=== PATIENT | female | born 1965 | race Asian ===

== ENCOUNTER 2017-02-20 03:48 | Emergency (ER) | payer OTHER ==
[2017-02-20] MEDS ORDERED: LIDOCAINE VISCOUS 2% 15 ML UDC MM STA (03:53)
[2017-02-20] MEDS ORDERED: MAG HYDROX/AL HYDROX/SIMETH 30 ML UDC PO STA (03:53)
[2017-02-20] MEDS ORDERED: FAMOTIDINE 20 MG TABLET PO STA (03:53)
--- NOTE | 2017-02-20 04:02 | ED Physician Documentation ---
PD HPI CHEST PAIN - Stated complaint Stated Complaint: CHEST PAIN - Chief complaint Chief Complaint: Abd Pain - History obtained from History obtained from: Patient - History of Present Illness Timing - onset: Today Timing - onset during: Rest Timing - details: Gradual onset, Still present Quality: Sharp, Indigestion Location: Substernal Radiation: Back Associated symptoms: Nausea. No: Shortness of air, Diaphoresis, Vomiting, Feeling faint / dizzy Similar symptoms before: No diagnosis Recently seen: Not recently seen - Additional information Additional information: Patient is a 51 year old female with a history of anxiety who is presenting to the emergency department for substernal burning. Patient states that she made a meal with extra onions in it tonight and ever since dinner she has had buring in her chest. Patient states that she had a hard time lying down because of the pain. Review of Systems Constitutional: denies: Fever, Chills Eyes: denies: Decreased vision, Photophobia Ears: reports: Reviewed and negative Nose: reports: Reviewed and negative Throat: reports: Reviewed and negative Cardiac: reports: Chest pain / pressure Respiratory: denies: Cough, Wheezing GI: denies: Nausea, Vomiting : reports: Reviewed and negative Skin: denies: Rash, Lesions Musculoskeletal: reports: Back pain Neurologic: denies: Generalized weakness, Focal weakness Psychiatric: reports: Anxiety Immunocompromised: denies: Immunocompromised PD PAST MEDICAL HISTORY - Past Medical History Cardiovascular: Hypertension, High cholesterol - Past Surgical History Past Surgical History: Yes 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 HEENT: Cataracts - Present Medications Home Medications: Ambulatory Orders Medication Instructions Recorded Confirmed Simvastatin 20 mg PO QPM 01/11/15 02/20/17 Telmisartan/Hydrochlorothiazid 1 tab PO DAILY 02/20/17 02/20/17 [Micardis Hct 40-12.5 mg Tablet] - Allergies Allergies/Adverse Reactions: Allergies Allergy/AdvReac Type Severity Reaction Status Date / Time codeine Allergy Intermediate Rash Verified 01/11/15 20:00 - Social History Does the pt smoke?: No Smoking Status: Never smoker Does the pt drink ETOH?: No Does the pt have substance abuse?: No PD ED PE NORMAL - Vitals Vital signs reviewed: Yes - General General: Alert and oriented X 3 - HEENT HEENT: Atraumatic, PERRL - Neck Neck: Supple, no meningeal sign, No JVD - Cardiac Cardiac: RRR, No murmur - Respiratory Respiratory: No respiratory distress - Abdomen Abdomen: Soft, Non tender, Non distended - Derm Derm: Normal color, Warm and dry, No rash - Extremities Extremities: No deformity, Normal ROM s pain, No calf tenderness / cord - Neuro Neuro: Alert and oriented X 3, No motor deficit, No sensory deficit, Normal speech Eye Opening: Spontaneous Motor: Obeys Commands Verbal: Oriented GCS Score: 15 - Psych Psych: Normal mood PD ED PE EXPANDED - General General: Alert, Anxious - Eyes Eyes: Other (pterygium of left eye) Results - Vitals Vitals: Vital Signs - 24 hr 02/20/17 03:53 Temperature 36.8 C Heart Rate 91 Respiratory 18 Rate Blood Pressure 176/97 H O2 Saturation 95 Oxygen O2 Source Room air - EKG (time done) 0359 Rate: Rate (enter#) (84) Rhythm: NSR Fletcher: Normal Intervals: Normal [place] QRS: Normal Ischemia: Normal ST segments Compare to prior EKG: Unchanged from prior EKG - Labs Labs: Laboratory Tests 02/20/17 04:25 Troponin I < 0.04 PD MEDICAL DECISION MAKING - ED course Complexity details: reviewed old records, reviewed results, re-evaluated patient , considered differential, d/w patient, d/w family ED course: Patient was seen and examined at bedside. ekg was performed and was normal sinus. Patient's vital signs were within normal limits. patient was treated with pepcid, maalox and viscous lidocaine. Upon re-evaluation patient's pain had resolved. Patient's HEART score was 1 and PERC score was 0. Patient required no further work up and was stable for discharge with outpatient follow up. Departure - Departure Disposition: 01 Home, Self Care Clinical Impression: GERD (gastroesophageal reflux disease) Condition: Good Instructions: ED GERD Follow-Up: Aguila Hanson PA-C [Primary Care Provider] - As Needed Comments: Your diagnostics today were within normal limits. Your symptoms are unlikely cardiac in nature and likely secondary to Acid reflux. You should avoid fried or fatty foods, as well as spicy and acidic foods. You should eat smaller meals and don't eat then lie down. If you get these symptoms again you can take maalox as needed. If these symptoms become more frequent you can talk with your doctor about starting a daily acid suppressant. You may return to the emergency department at any time for new, worsening or uncontrollable symptoms.
[2017-02-20 05:00] VITALS: BP 161/79
== END 2017-02-20 05:00 | disposition home or self-care (01) ==
LOC: ED 03:48
DX: K21.9 Gastro-esophageal reflux disease without esophagitis (principal); I10 Essential (primary) hypertension; E78.00 Pure hypercholesterolemia, unspecified; F41.9 Anxiety disorder, unspecified
CPT/HCPCS: 36415; 84484; 93005; 99283; A9270

== ENCOUNTER 2017-12-25 18:46 | Emergency (ER) | payer OTHER ==
[2017-12-25] MEDS ORDERED: CLINDAMYCIN 900 MG/50 ML 50 ML IV ONE (20:41)
[2017-12-25] MEDS ORDERED: HYDROcod/ACETAM 5/325 MG TABLET PO STA (20:42)
--- NOTE | 2017-12-25 21:39 | ED Physician Documentation ---
PD HPI HEENT - Stated complaint Stated Complaint: TOOTH PX - Chief complaint Chief Complaint: Heent - History obtained from History obtained from: Patient, Family () - History of Present Illness Timing - onset: Yesterday Timing - duration: Days (2) Timing - details: Gradual onset Location: Tooth Similar symptoms before: Has not had sx before - Additional information Additional information: The patient is a 52-year-old female who presents with left upper toothache that started yesterday and has become worse today with facial swelling. She denies fever, headache, or sore throat. She has no history of similar symptoms in the past. She has taken Aleve without relief. Review of Systems Constitutional: denies: Fever Eyes: denies: Irritation Ears: denies: Ear pain Nose: denies: Congestion Throat: reports: Dental pain / toothache. 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 HEENT: Cataracts - Present Medications Home Medications: Ambulatory Orders Medication Instructions Recorded Confirmed Simvastatin 20 mg PO QPM 01/11/15 02/20/17 Telmisartan/Hydrochlorothiazid 40 mg PO DAILY 02/20/17 02/20/17 [Micardis Hct 40-12.5 mg Tablet] Clindamycin HCl [Clindamycin 300MG 300 mg PO QID #28 capsule 12/25/17 CAP] Hydrocodone/Acetaminophen 1 - 2 each PO Q6H PRN #14 tablet 12/25/17 [Hydrocodon-Acetaminophen 5-325] - Allergies Allergies/Adverse Reactions: Allergies Allergy/AdvReac Type Severity Reaction Status Date / Time codeine Allergy Intermediate Rash Verified 12/25/17 18:58 - Social History Does the pt smoke?: No Smoking Status: Never smoker Does the pt drink ETOH?: No Does the pt have substance abuse?: No PD ED PE NORMAL - Vitals Vital signs reviewed: Yes (Hypertensive) - General General: Alert and oriented X 3, Well developed/nourished - HEENT HEENT: Atraumatic, EOMI, Ears normal, Pharynx benign, Other (Left facial swelling with mild tenderness to palpation in the maxillary region. Left upper molar is loose in the socket, and tender to palpation. The adjacent molar has been extracted.) - Neck Neck: Supple, no meningeal sign, Other (Mildly enlarged anterior cervical nodes on the left.) - Cardiac Cardiac: RRR, No murmur - Respiratory Respiratory: No respiratory distress, Clear bilaterally - Abdomen Abdomen: Soft, Non tender - Derm Derm: No rash - Neuro Neuro: Alert and oriented X 3, Normal speech Results - Vitals Vitals: Vital Signs - 24 hr 12/25/17 12/25/17 18:57 22:05 Temperature 36.5 C Heart Rate 89 88 Respiratory 20 18 Rate Blood Pressure 179/104 H 160/98 H O2 Saturation 98 98 Oxygen O2 Source Room air PD MEDICAL DECISION MAKING - ED course Complexity details: re-evaluated patient, considered differential, d/w patient, d/w family ED course: The patient's presentation is significant for dental abscess with left maxillary swelling. There is no evidence of peritonsillar abscess or periorbital cellulitis. Treatment in the emergency department included administration of clindamycin 900 mg IV, and Vicodin 1 tablet orally. She is being discharged with prescriptions for both. I discussed with her and her outpatient treatment and the need for urgent dental follow-up. I also discussed with them potentially worrisome signs or symptoms that should prompt reevaluation in the emergency department. Departure - Departure Disposition: 01 Home, Self Care Clinical Impression: Dental abscess Condition: Stable Instructions: ED Abscess Dental Follow-Up: MAGDA HANNON [Primary Care Provider] - Prescriptions: Clindamycin HCl [Clindamycin 300MG CAP] 300 mg PO QID #28 capsule Hydrocodone/Acetaminophen [Hydrocodon-Acetaminophen 5-325] 1 - 2 each PO Q6H PRN #14 tablet PRN Reason: pain Comments: Take clindamycin 4 times daily as prescribed. You can use ibuprofen, up to 800 mg 3 times daily for its anti-inflammatory effect. You can use Vicodin as prescribed if needed for pain. Follow-up with a dentist as soon as possible. Call tomorrow to schedule appointment. Return to the emergency department if you develop increasing facial swelling, difficulty swallowing, or otherwise worsening symptoms. Discharge Date/Time: 12/25/17 22:05
[2017-12-25 22:07] VITALS: BP 160/98
== END 2017-12-25 22:05 | disposition home or self-care (01) ==
LOC: ED 18:46
DX: K04.7 Periapical abscess without sinus (principal); I10 Essential (primary) hypertension
CPT/HCPCS: 96365; 99283; A9270

== ENCOUNTER 2018-02-24 01:48 | Emergency (ER) | payer OTHER ==
--- NOTE | 2018-02-24 02:09 | ED Physician Documentation ---
PD HPI Fall - Stated complaint Stated Complaint: L SIDE PAIN - Chief complaint Chief Complaint: Trauma Ch/Bk - History obtained from History obtained from: Patient - History of Present Illness Mechanism of injury: Tripped Fall distance: Standing position Where injury occurred: Home Timing - onset: How many hours ago (1) Injury(ies) location: Chest Pain level now: 8 Quality of pain: Pain, Sharp Associated symptoms: No: LOC, AMS, Amnesia, Neck pain, Weakness, Paresthesias, Dyspnea, Nausea / vomiting, Hematemesis, Abdominal distension Symptoms improve with: Rest Worsens with: Movement, Palpation, Other (deep inspiration) Contributing factors: No: Anticoagulated, Intoxicated Similar symptoms before: Has not had sx before Recently seen: Not recently seen - Additional information Additional information: was walking down stairs and tripped over her [place] islander jessica. patients left chest wall struck the stair railing, and her only c/o is left anterolateral chest wall pain Review of Systems Cardiac: reports: Chest pain / pressure. 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 HEENT: Cataracts - Present Medications Home Medications: Ambulatory Orders Medication Instructions Recorded Confirmed Simvastatin 20 mg PO QPM 01/11/15 02/20/17 Telmisartan/Hydrochlorothiazid 40 mg PO DAILY 02/20/17 02/20/17 [Micardis Hct 40-12.5 mg Tablet] Hydrocodone/Acetaminophen 1 - 2 each PO Q6H PRN #10 tablet 02/24/18 [Hydrocodon-Acetaminophen 5-325] Potassium Chloride [Klor-Con M20] 1 tab PO BID 02/24/18 02/24/18 - Allergies Allergies/Adverse Reactions: Allergies Allergy/AdvReac Type Severity Reaction Status Date / Time codeine Allergy Intermediate Rash Verified 02/24/18 01:57 - Social History Does the pt smoke?: No Smoking Status: Never smoker Does the pt drink ETOH?: No Does the pt have substance abuse?: No PD ED PE NORMAL - Vitals Vital signs reviewed: Yes - General General: Alert and oriented X 3, Well developed/nourished, Other (appears to be in painful distress, worse with movement) - Neck Neck: No bony TTP - Cardiac Cardiac: RRR, No murmur - Respiratory Respiratory: No respiratory distress, Clear bilaterally - Abdomen Abdomen: Soft, Non tender - Free text exam Free text exam: tender to palpation left anterolateral chest wall without crepitus Results - Vitals Vitals: Vital Signs - 24 hr 02/24/18 02/24/18 02/24/18 01:54 02:08 02:52 Temperature 37.0 C Heart Rate 92 91 82 Respiratory 20 18 Rate Blood Pressure 181/98 H 181/104 H 156/109 H O2 Saturation 98 98 97 02/24/18 03:49 Temperature Heart Rate 87 Respiratory Rate Blood Pressure 148/78 H O2 Saturation 100 Oxygen O2 Source Room air - Rads (name of study) cxr with left ribs Radiology: Prelim report reviewed, See rad report PD MEDICAL DECISION MAKING - ED course Complexity details: reviewed results, re-evaluated patient, considered differential, d/w patient, d/w family ED course: I performed bedside US and there was sharp hepatosplenal interface that was well visualized with no evidence of free fluid. patient had significant improvement with 1mg IM dilaudid Departure - Departure Disposition: 01 Home, Self Care Clinical Impression: Chest wall contusion Condition: Good Instructions: ED Contusion Chest Wall Follow-Up: MAGDA HANNON [Primary Care Provider] - (2-3 days if not improving ) Prescriptions: Hydrocodone/Acetaminophen [Hydrocodon-Acetaminophen 5-325] 1 - 2 each PO Q6H PRN #10 tablet PRN Reason: pain Discharge Date/Time: 02/24/18 03:50
[2018-02-24] MEDS ORDERED: HYDROmorphone 1 MG/ML CARPUJECT IM STA (02:24)
--- NOTE | 2018-02-24 03:00 | XRAY Report ---
Reason: injury, left chest pain Procedure Date: 02/24/2018 Accession Number: [id number] / [id number] Procedure: XR - Ribs w/PA Chest LT CPT Code: FULL RESULT: EXAM: LEFT RIB RADIOGRAPHY EXAM DATE: 02/24/2018 02:53 AM. CLINICAL HISTORY: Injury, left chest pain. COMPARISON: None. TECHNIQUE: 1 view of the chest and 2 views of the ribs. FINDINGS: Bones: Normal. No fracture or bone lesion. Lungs: No focal opacities. No pneumothorax. No pleural effusions. Mediastinum: Heart and mediastinal contours are unremarkable. Other: There is some densities overlying the proximal left humerus. IMPRESSION: 1. No infiltrates. 2. No rib fractures. 3. Questionable density overlying or within the proximal left humerus. RADIA
[2018-02-24] MEDS ORDERED: HYDROcod/ACET 5/325 Prepack 4 PO STA (03:31)
[2018-02-24 03:50] VITALS: BP 148/78
== END 2018-02-24 03:50 | disposition home or self-care (01) ==
LOC: ED 01:48
DX: S20.219A Contusion of unspecified front wall of thorax, initial encounter (principal); W01.0XXA Fall on same level from slipping, tripping and stumbling without subsequent striking against object, initial encounter; Y93.01 Activity, walking, marching and hiking; Y92.009 Unspecified place in unspecified non-institutional (private) residence as the place of occurrence of the external cause; I10 Essential (primary) hypertension; E78.00 Pure hypercholesterolemia, unspecified
CPT/HCPCS: 71101; 96372; 99283; J1170

== ENCOUNTER 2018-04-12 11:18 | Outpatient (CLI) | payer OTHER ==
[2018-04-12 11:42] LABS: BASOPHILS # (AUTO) 0.1 10^3/uL (0.0-0.1); BASOPHILS % (AUTO) 1.1 %; EOSINOPHILS # (AUTO) 0.4 10^3/uL (0.0-0.7); EOSINOPHILS % (AUTO) 5.2 %; HGB - HEMOGLOBIN 14.7 g/dL (12.0-16.0); LYMPHOCYTES # (AUTO) 2.2 10^3/uL (1.5-3.5); LYMPHOCYTES % (AUTO) 29.9 %; MEAN CORPUSCULAR HEMOGLOBIN 30.5 pg (27.0-31.0); MEAN CORPUSCULAR HGB CONC 35.1 g/dL (32.0-36.0); MEAN CORPUSCULAR VOLUME 87.1 fL (81.0-99.0); MEAN PLATELET VOLUME 7.9 fL (7.9-10.8); MONOCYTES # (AUTO) 0.3 10^3/uL (0.0-1.0); MONOCYTES % (AUTO) 4.1 %; NEUTROPHILS # (AUTO) 4.4 10^3/uL (1.5-6.6); NEUTROPHILS % (AUTO) 59.7 %; PLT - PLATELET COUNT 276 10^3/uL (130-450); RED BLOOD COUNT 4.82 10^6/uL (4.20-5.40); RED CELL DISTRIBUTION WIDTH 12.9 % (12.0-15.0); WHITE BLOOD COUNT 7.4 x10^3/uL (4.8-10.8)
[2018-04-12 11:57] LABS: ALBUMIN 4.8 g/dL (3.2-5.5); ALBUMIN/GLOBULIN RATIO 1.2 (1.0-2.2); CALCIUM 9.3 mg/dL (8.5-10.3); CREATININE 0.5 mg/dL (0.4-1.0); TOTAL PROTEIN 8.8 g/dL (6.7-8.2)
== END 2018-04-12 11:19 | disposition home or self-care (01) ==
LOC: LAB 11:18
PROVIDERS: ATTEND Internal Medicine Gastroenterology
DX: R10.11 Right upper quadrant pain (principal); I10 Essential (primary) hypertension; E78.5 Hyperlipidemia, unspecified; Z80.0 Family history of malignant neoplasm of digestive organs
CPT/HCPCS: 36415; 80053; 83690; 85025

== ENCOUNTER 2018-04-27 11:27 | Day surgery (SDC) | payer OTHER ==
[2018-04-27] MEDS ORDERED: LACTATED RINGERS 1,000 ML IV ONE ×3 (11:46→14:45)
[2018-04-27] MEDS ORDERED: LIDO GARGLE 30 ML BOTTLE ONE (12:55)
[2018-04-27] MEDS ORDERED: LIDO GARGLE 30 ML BOTTLE PO ONE ×2 (13:53→14:11)
[2018-04-27] MEDS ORDERED: fentaNYL 250 MCG/5 ML VIAL IVP ONE (14:02)
[2018-04-27] MEDS ORDERED: MIDAZOLAM 2 MG/2 ML VIAL IVP ONE (14:02)
[2018-04-27 16:05] VITALS: BP 102/68
== END 2018-04-27 11:28 | disposition home or self-care (01) ==
LOC: SDS 11:27
PROVIDERS: ATTEND Internal Medicine Gastroenterology
PROC: 0DB68ZX Excision of Stomach, Via Natural or Artificial Opening Endoscopic, Diagnostic (ICD-10-PCS; 2018-04-27)
PROC: 0DJD8ZZ Inspection of Lower Intestinal Tract, Via Natural or Artificial Opening Endoscopic (ICD-10-PCS; principal; 2018-04-27 12:45)
PROC: 0DB98ZX Excision of Duodenum, Via Natural or Artificial Opening Endoscopic, Diagnostic (ICD-10-PCS; 2018-04-27 12:45)
DX: K29.50 Unspecified chronic gastritis without bleeding (principal); D12.2 Benign neoplasm of ascending colon; Z80.0 Family history of malignant neoplasm of digestive organs; E78.5 Hyperlipidemia, unspecified; I10 Essential (primary) hypertension
CPT/HCPCS: 43239; 45378; A9270; J3010; J7120

== ENCOUNTER 2018-05-05 12:22 | Emergency (ER) | payer OTHER ==
[2018-05-05] MEDS ORDERED: MECLIZINE 12.5 MG TABLET PO STA (14:39)
[2018-05-05] MEDS ORDERED: ONDANSETRON ODT 4 MG TABLET TL STA (14:40)
--- NOTE | 2018-05-05 16:16 | ED Physician Documentation ---
History of Present Illness - Stated complaint Stated Complaint: DIZZY - Chief complaint Chief Complaint: Neuro - History obtained from History obtained from: Patient - History of Present Illness Timing: Today - Additonal information Additional information: The patient is a 52-year-old female who presents with dizziness that started this morning. When queried, she defines it more specifically as a spinning sensation that is worse with movement of her head. She reports associated nausea. She denies vomiting. She denies headache, fever, sore throat, or coug h. She reports history of similar symptoms in the past, stating usually gets better with lying down. Review of Systems Constitutional: denies: Fever Eyes: denies: Discharge Ears: denies: Tinnitus/ringing Nose: denies: Congestion Throat: denies: Sore throat Cardiac: denies: Chest pain / pressure Respiratory: denies: Dyspnea, Cough GI: reports: Nausea. 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 HEENT: Cataracts - Present Medications Home Medications: Ambulatory Orders Medication Instructions Recorded Confirmed Simvastatin 20 mg PO QPM 01/11/15 04/27/18 Telmisartan/Hydrochlorothiazid 40 mg PO DAILY 02/20/17 04/27/18 [Micardis Hct 40-12.5 mg Tablet] Hydrocodone/Acetaminophen 1 - 2 each PO Q6H PRN #10 tablet 02/24/18 04/27/18 [Hydrocodon-Acetaminophen 5-325] Potassium Chloride [Klor-Con M20] 1 tab PO BID 02/24/18 04/27/18 Meclizine HCl [Motion Sickness 25 mg PO Q6HR PRN #20 tablet 05/05/18 Relief] - Allergies Allergies/Adverse Reactions: Allergies Allergy/AdvReac Type Severity Reaction Status Date / Time codeine Allergy Intermediate Rash Verified 05/05/18 12:24 - Social History Does the pt smoke?: No Smoking Status: Never smoker Does the pt drink ETOH?: No Does the pt have substance abuse?: No PD ED PE NORMAL - Vitals Vital signs reviewed: Yes (hypertensive) - General General: Alert and oriented X 3, Well developed/nourished - HEENT HEENT: Atraumatic, PERRL, EOMI, Ears normal, Pharynx benign, Other (Fundi with sharp disc margins, without papilledema.) - Neck Neck: No adenopathy, No JVD - Cardiac Cardiac: RRR - Respiratory Respiratory: No respiratory distress, Clear bilaterally - Abdomen Abdomen: Soft, Non tender - Back Back: No CVA TTP - Derm Derm: No rash - Extremities Extremities: No edema, No calf tenderness / cord - Neuro Neuro: Alert and oriented X 3, No motor deficit, No sensory deficit Results - Vitals Vitals: Vital Signs - 24 hr 05/05/18 05/05/18 12:24 14:36 Temperature 36.6 C 36.8 C Heart Rate 88 89 Respiratory 16 14 Rate Blood Pressure 185/93 H 163/100 H O2 Saturation 99 100 Oxygen O2 Source Room air PD MEDICAL DECISION MAKING - ED course Complexity details: re-evaluated patient, considered differential, d/w patient, d/w family ED course: The patient's presentation is most consistent with peripheral vertigo. Her presentation does not suggest a central source of vertigo. Treatment in the emergency department included administration of Zofran 4 mg orally, and meclizine 25 mg orally. On reevaluation she feels subjectively much improved, and demonstrates ability to ambulate without recurrent symptoms. She is being discharged with prescription for meclizine. I discussed with her and her daughter symptomatic treatment, outpatient follow-up, as well as potentially worrisome signs or symptoms that should prompt reevaluation in the emergency department. Departure - Departure Disposition: Home, Self Care Clinical Impression: Vertigo Hypertension Qualifiers: Hypertension type: unspecified Qualified Code(s): I10 - Essential (primary) hypertension Condition: Stable Instructions: ED Vertigo Unspecified Follow-Up: MAGDA HANNON [Primary Care Provider] - Prescriptions: Meclizine HCl [Motion Sickness Relief] 25 mg PO Q6HR PRN #20 tablet PRN Reason: Dizziness Comments: You can use meclizine as prescribed if needed for dizziness. Follow-up with your primary physician within 1 week. Call to schedule appointment. Return to the emergency department if you develop increasing dizziness, increasing headache, persistent vomiting, or otherwise worsening symptoms.
[2018-05-05 20:10] VITALS: BP 158/96
== END 2018-05-05 17:15 | disposition home or self-care (01) ==
LOC: ED 12:22
DX: R42 Dizziness and giddiness (principal); I10 Essential (primary) hypertension; E78.00 Pure hypercholesterolemia, unspecified
CPT/HCPCS: 99283; A9270; Q0162

== ENCOUNTER 2018-05-07 07:29 | Emergency (ER) | payer OTHER ==
[2018-05-07] MEDS ORDERED: MAG HYDROX/AL HYDROX/SIMETH 30 ML UDC PO STA (07:51)
[2018-05-07] MEDS ORDERED: SODIUM CHLORIDE 0.9% 1,000 ML IV ONE (07:51)
[2018-05-07] MEDS ORDERED: LIDOCAINE VISCOUS 2% 15 ML UDC MM STA (07:51)
[2018-05-07] MEDS ORDERED: FAMOTIDINE 20 MG/2 ML VIAL IVP STA (07:51)
--- NOTE | 2018-05-07 07:56 | ED Physician Documentation ---
PD HPI ABD PAIN - Stated complaint Stated Complaint: ABD PX - Chief complaint Chief Complaint: Abd Pain - History obtained from History obtained from: Patient, Family () - History of Present Illness Timing - onset: Last night Timing - details: Still present Quality: Pain Location: Epigastric Associated symptoms: Nausea, Vomiting Similar symptoms before: Diagnosis (Acid peptic disease) Recently seen: Emergency Dept (2 days ago for dizziness.) - Additional information Additional information: The patient is a 52-year-old female who presents with epigastric abdominal pain that started at 11:00 last night after eating brown rice, chicken, and bread. The pain has been persistent since that time, with associated vomiting. She denies diaphoresis or shortness of breath. She has history of similar symptoms in the past after eating onions. It was diagnosed as "heartburn." She was seen here 2 days ago for dizziness, and treated for vertigo. She was noted to have hypertension at that time. Review of Systems Constitutional: denies: Fever, Fatigue Ears: denies: Tinnitus/ringing Nose: denies: Congestion Throat: denies: Sore throat Cardiac: denies: Chest pain / pressure, Palpitations Respiratory: denies: Dyspnea, Cough GI: reports: Abdominal Pain, Nausea, Vomiting. 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 HEENT: Cataracts - Present Medications Home Medications: Ambulatory Orders Medication Instructions Recorded Confirmed Simvastatin 20 mg PO QPM 01/11/15 04/27/18 Telmisartan/Hydrochlorothiazid 40 mg PO DAILY 02/20/17 04/27/18 [Micardis Hct 40-12.5 mg Tablet] Meclizine HCl [Motion Sickness 25 mg PO Q6HR PRN #20 tablet 05/05/18 Relief] raNITIdine [Zantac] 150 mg PO BID #30 tablet 05/07/18 - Allergies Allergies/Adverse Reactions: Allergies Allergy/AdvReac Type Severity Reaction Status Date / Time codeine Allergy Intermediate Rash Verified 05/05/18 12:24 - Social History Does the pt smoke?: No Smoking Status: Never smoker Does the pt drink ETOH?: No Does the pt have substance abuse?: No PD ED PE NORMAL - Vitals Vital signs reviewed: Yes (hypertensive) - General General: Alert and oriented X 3, Well developed/nourished - HEENT HEENT: Atraumatic, Pharynx benign - Neck Neck: Supple, no meningeal sign, No adenopathy, No JVD - Cardiac Cardiac: RRR, No murmur - Respiratory Respiratory: No respiratory distress, Clear bilaterally - Abdomen Abdomen: Normal bowel sounds, Soft, Other (Epigastric tenderness to palpation, without rebound or guarding.) - Back Back: No CVA TTP - Derm Derm: No rash - Extremities Extremities: No edema, No calf tenderness / cord - Neuro Neuro: Alert and oriented X 3, No motor deficit, Normal speech Results - Vitals Vitals: Vital Signs - 24 hr 05/07/18 05/07/18 05/07/18 07:38 08:32 08:52 Heart Rate 83 80 81 Respiratory 20 16 18 Rate Blood Pressure 187/99 H 184/98 H 159/93 H O2 Saturation 100 100 96 05/07/18 05/07/18 05/07/18 09:03 10:01 12:08 Heart Rate 84 76 88 Respiratory 22 20 16 Rate Blood Pressure 165/99 H 145/86 H 140/79 H O2 Saturation 99 97 100 Oxygen O2 Source Room air - EKG (time done) .7:54 Rate: Rate (enter#) (82) Rhythm: NSR [place]: Normal Intervals: Prolonged NC QRS: Normal Ischemia: Normal ST segments Computer interpretation: Agree with computer - Labs Labs: Laboratory Tests 05/07/18 05/07/18 05/07/18 08:00 08:00 08:00 WBC 7.9 RBC 4.60 Hgb 14.4 Hct 39.8 MCV 86.4 MCH 31.4 H MCHC 36.3 H RDW 12.9 Plt Count 245 MPV 8.5 Neut # (Auto) 5.0 Lymph # (Auto) 1.9 [place] # (Auto) 0.3 Eos # (Auto) 0.4 Baso # (Auto) 0.2 H Absolute Nucleated RBC 0.00 Nucleated RBC % 0.0 Sodium 136 Potassium 3.1 L Chloride 98 L Carbon Dioxide 28 Anion Gap 10.0 BUN 14 Creatinine 0.5 Estimated GFR (MDRD) 131 Glucose 149 H Calcium 9.2 Total Bilirubin 0.4 AST 38 ALT 53 Alkaline Phosphatase 79 Troponin I < 0.04 Total Protein 8.2 Albumin 4.5 Globulin 3.7 Albumin/Globulin Ratio 1.2 Lipase 43 - Rads (name of study) RUQ U/S Radiology: Prelim report reviewed, EMP read contemporaneously, See rad report (1) No acute intra-abdominal abnormality identified. 2) Fatty liver. 3) Incidental small gallbladder polyp, likely benign. Annual surveillance ultrasound recommended.) PD MEDICAL DECISION MAKING - ED course Complexity details: reviewed old records, reviewed results, re-evaluated patient, considered differential, d/w patient, d/w family ED course: The patient's presentation is most consistent with gastritis. Ultrasound of the right upper quadrant reveals no evidence of gallstones. There is a benign- appearing polyp that the radiologist recommends following with annual ultrasound. Cardiac etiology was considered, but is unlikely, with a normal electrocardiogram and normal troponin. She did not get any relief with nitroglycerin. Chest x-ray is negative for pulmonary etiology. Treatment in the emergency department included administration of GI cocktail, which did not provide relief. Sublingual nitroglycerin x2 and 4 baby aspirin were administered, with no improvement. Morphine 4 mg was administered IV with subsequent relief. Famotidine 10 mg was administered IV. I discussed with her and her the results of the workup and the likely diagnosis, outpatient treatment and follow-up, as well as potentially worrisome signs or symptoms that should prompt reevaluation in the emergency department. She is being discharged with a prescription for ranitidine. A disc of the ultrasound was sent with her at discharge. Departure - Departure Disposition: Home, Self Care Clinical Impression: Gastritis Qualifiers: Gastritis type: unspecified gastritis Chronicity: acute Gastritis bleeding: without bleeding Qualified Code(s): K29.00 - Acute gastritis without bleeding Condition: Stable Instructions: ED Gastritis Follow-Up: MAGDA HANNON [Primary Care Provider] - Prescriptions: raNITIdine [Zantac] 150 mg PO BID #30 tablet Comments: Take ranitidine twice daily as prescribed. You can use liquid antacid, such as Maalox or Mylanta if you develop recurrent symptoms. Follow-up with your primary physician this week as scheduled. Return to the emergency department if you develop recurrent or increasing abdominal pain, persistent vomiting, or otherwise worsening symptoms. Discharge Date/Time: 05/07/18 12:09
[2018-05-07 08:15] LABS: BASOPHILS # (AUTO) 0.2 10^3/uL (0.0-0.1); BASOPHILS % (AUTO) 2.9 %; EOSINOPHILS # (AUTO) 0.4 10^3/uL (0.0-0.7); EOSINOPHILS % (AUTO) 5.3 %; HGB - HEMOGLOBIN 14.4 g/dL (12.0-16.0); LYMPHOCYTES # (AUTO) 1.9 10^3/uL (1.5-3.5); LYMPHOCYTES % (AUTO) 24.6 %; MEAN CORPUSCULAR HEMOGLOBIN 31.4 pg (27.0-31.0); MEAN CORPUSCULAR HGB CONC 36.3 g/dL (32.0-36.0); MEAN CORPUSCULAR VOLUME 86.4 fL (81.0-99.0); MEAN PLATELET VOLUME 8.5 fL (7.9-10.8); MONOCYTES # (AUTO) 0.3 10^3/uL (0.0-1.0); MONOCYTES % (AUTO) 4.1 %; NEUTROPHILS % (AUTO) 63.1 %; PLT - PLATELET COUNT 245 10^3/uL (130-450); RED CELL DISTRIBUTION WIDTH 12.9 % (12.0-15.0); WHITE BLOOD COUNT 7.9 x10^3/uL (4.8-10.8)
[2018-05-07] MEDS ORDERED: NITROGLYCERIN SL 0.4 MG TABLET SL STA ×2 (08:35→08:52)
[2018-05-07] MEDS ORDERED: ASPIRIN CHEW 81 MG TABLET PO STA (08:35)
[2018-05-07 08:37] LABS: ALBUMIN 4.5 g/dL (3.2-5.5); ALBUMIN/GLOBULIN RATIO 1.2 (1.0-2.2); BILIRUBIN,TOTAL 0.4 mg/dL (0.2-1.0); CALCIUM 9.2 mg/dL (8.5-10.3); CREATININE 0.5 mg/dL (0.4-1.0); TOTAL PROTEIN 8.2 g/dL (6.7-8.2)
[2018-05-07] MEDS ORDERED: MORPHINE 2 MG/ML SYRINGE IVP STA (09:10)
[2018-05-07] MEDS ORDERED: KETOROLAC 30 MG/ML VIAL IVP STA (10:17)
--- NOTE | 2018-05-07 11:29 | Ultrasound Report ---
Reason: RUQ abd. pain Procedure Date: 05/07/2018 Accession Number: [id number] / [id number] Procedure: US - Abdomen Limited CPT Code: FULL RESULT: EXAM: ABDOMEN ULTRASOUND LIMITED, RUQ EXAM DATE: 05/07/2018 10:56 AM. CLINICAL HISTORY: Right upper quadrant pain. COMPARISON: None. TECHNIQUE: Real-time scanning was performed with static images obtained. FINDINGS: Liver: The liver is diffusely echogenic in appearance suggesting fibrofatty infiltration. No suspicious lesions or masses are identified. The liver measures 17.0 cm. Main portal vein flow: Hepatopetal. Gallbladder: Small 5 mm gallbladder polyp is seen. No stones, wall thickening, or sonographic Castellano's sign. Biliary System: CBD measures 5 mm. No intrahepatic or extrahepatic ductal dilatation. Other: None. IMPRESSION: 1. No acute intra-abdominal abnormality identified. 2. Fatty liver. 3. Incidental small gallbladder polyp(s), likely benign. Annual surveillance ultrasound recommended. Management above is based on recommendations outlined in an ACR White Paper: Mohinder Menard et al. Managing Incidental Findings on Abdominal and Pelvic CT and MRI, Part 4: White Paper of the ACR Incidental Findings Committee II on Gallbladder and Biliary Findings. Journal of the [employer] 10, 953956 (2013). RADIA
[2018-05-07 12:08] VITALS: BP 140/79
== END 2018-05-07 12:09 | disposition home or self-care (01) ==
LOC: ED 07:29
DX: K29.00 Acute gastritis without bleeding (principal); K82.4 Cholesterolosis of gallbladder; I10 Essential (primary) hypertension; E78.00 Pure hypercholesterolemia, unspecified
CPT/HCPCS: 36415; 76705; 80053; 83690; 84484; 85025; 93005; 96361; 96374; 96375; 99283; 99284; A9270; J2270

== ENCOUNTER 2018-06-19 06:37 | Day surgery (SDC) | payer OTHER ==
[2018-06-19 07:07] LABS: BASOPHILS # (AUTO) 0.1 10^3/uL (0.0-0.1); BASOPHILS % (AUTO) 0.8 %; EOSINOPHILS # (AUTO) 0.3 10^3/uL (0.0-0.7); EOSINOPHILS % (AUTO) 3.4 %; HGB - HEMOGLOBIN 14.2 g/dL (12.0-16.0); LYMPHOCYTES # (AUTO) 1.7 10^3/uL (1.5-3.5); LYMPHOCYTES % (AUTO) 22.3 %; MEAN CORPUSCULAR HEMOGLOBIN 29.9 pg (27.0-31.0); MEAN CORPUSCULAR HGB CONC 34.5 g/dL (32.0-36.0); MEAN CORPUSCULAR VOLUME 86.9 fL (81.0-99.0); MONOCYTES # (AUTO) 0.4 10^3/uL (0.0-1.0); MONOCYTES % (AUTO) 4.7 %; NEUTROPHILS # (AUTO) 5.2 10^3/uL (1.5-6.6); NEUTROPHILS % (AUTO) 68.8 %; PLT - PLATELET COUNT 239 10^3/uL (130-450); RED BLOOD COUNT 4.73 10^6/uL (4.20-5.40); RED CELL DISTRIBUTION WIDTH 12.8 % (12.0-15.0); WHITE BLOOD COUNT 7.5 x10^3/uL (4.8-10.8)
[2018-06-19] MEDS ORDERED: ONDANSETRON 4 MG/2 ML VIAL IVP STA (07:10)
[2018-06-19] MEDS ORDERED: HYDROmorphone 1 MG/ML CARPUJECT IVP STA ×2 (07:10→10:17)
[2018-06-19] MEDS ORDERED: SODIUM CHLORIDE 0.9% 1,000 ML IV ONE (07:11)
[2018-06-19 07:18] LABS: ALBUMIN 4.5 g/dL (3.2-5.5); ALBUMIN/GLOBULIN RATIO 1.2 (1.0-2.2); BILIRUBIN,TOTAL 0.5 mg/dL (0.2-1.0); CALCIUM 8.9 mg/dL (8.5-10.3); CREATININE 0.5 mg/dL (0.4-1.0); TOTAL PROTEIN 8.2 g/dL (6.7-8.2)
--- NOTE | 2018-06-19 07:24 | ED Physician Documentation ---
PD HPI ABD PAIN - Stated complaint Stated Complaint: RT SIDE PX - Chief complaint Chief Complaint: Abd Pain - History obtained from History obtained from: Patient, Family - History of Present Illness Timing - onset: How many hours ago (8) Timing - duration: Hours (8) Timing - details: Abrupt onset Pain level max: 10 Pain level now: 10 Quality: Aching, Pain Location: RUQ, Epigastric Radiation: No: Chest, , Lower back, Left flank, Left shoulder, Right flank, Right shoulder, Upper back Improved by: Other (nothing) Worsened by: Eating Associated symptoms: Nausea. No: Fever, Vomiting, Hematemesis, Diarrhea, Constipation, Melena, Hematochezia, Dysuria, Hematuria, Chest pain Similar symptoms before: Diagnosis (states scheduled to have a cholecystectomy 06/26/2018) - Additional information Additional information: started after eating togolese food. 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 : None HEENT: None Psych: None Musculoskeletal: None Derm: None - Past Surgical History Past Surgical History: Yes 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 HEENT: Cataracts - Present Medications Home Medications: Ambulatory Orders Medication Instructions Recorded Confirmed Simvastatin 20 mg PO QPM 01/11/15 06/19/18 Telmisartan/Hydrochlorothiazid 40 mg PO DAILY 02/20/17 06/19/18 [Micardis Hct 40-12.5 mg Tablet] raNITIdine [Zantac] 150 mg PO BID #30 tablet 05/07/18 06/19/18 - Allergies Allergies/Adverse Reactions: Allergies Allergy/AdvReac Type Severity Reaction Status Date / Time codeine Allergy Intermediate Rash Verified 06/19/18 06:45 - Social History Does the pt smoke?: No Smoking Status: Never smoker Does the pt drink ETOH?: No Does the pt have substance abuse?: No - Immunizations Immunizations are current?: Yes - POLST Patient has POLST: No PD ED PE NORMAL - Vitals Vital signs reviewed: Yes - General General: Alert and oriented X 3, No acute distress, Well developed/nourished - HEENT HEENT: PERRL, Moist mucous membranes - Neck Neck: Supple, no meningeal sign - Cardiac Cardiac: RRR, Strong equal pulses - Respiratory Respiratory: No respiratory distress, Clear bilaterally - Abdomen Abdomen: Soft, Non distended, Other (Tender to palpation epigastric and right upper quadrant. Positive Castellano sign.) - Back Back: No CVA TTP, No spinal TTP - Derm Derm: Warm and dry - Extremities Extremities: No edema - Neuro Neuro: Alert and oriented X 3 - Psych Psych: Normal mood, Normal affect Results - Vitals Vitals: Vital Signs - 24 hr 06/19/18 06/19/18 06/19/18 06:42 09:15 11:10 Temperature 36.7 C 36.6 C Heart Rate 79 85 74 Respiratory 20 17 17 Rate Blood Pressure 165/96 H 138/91 H 136/78 H O2 Saturation 99 96 98 06/19/18 06/19/18 11:48 13:45 Temperature 36.8 C Heart Rate 69 88 Respiratory 16 19 Rate Blood Pressure 119/66 128/77 O2 Saturation 98 Oxygen O2 Source Room air - Labs Labs: Laboratory Tests 06/19/18 06/19/18 06/19/18 07:00 07:00 07:15 WBC 7.5 RBC 4.73 Hgb 14.2 Hct 41.1 MCV 86.9 MCH 29.9 MCHC 34.5 RDW 12.8 Plt Count 239 MPV 8.0 Neut # (Auto) 5.2 Lymph # (Auto) 1.7 [place] # (Auto) 0.4 Eos # (Auto) 0.3 Baso # (Auto) 0.1 Absolute Nucleated RBC 0.00 Nucleated RBC % 0.0 Sodium 137 Potassium 3.8 Chloride 100 L Carbon Dioxide 27 Anion Gap 10.0 BUN 10 Creatinine 0.5 Estimated GFR (MDRD) 131 Glucose 146 H Calcium 8.9 Total Bilirubin 0.5 AST 29 ALT 45 Alkaline Phosphatase 83 Total Protein 8.2 Albumin 4.5 Globulin 3.7 Albumin/Globulin Ratio 1.2 Lipase 37 Urine Color YELLOW Urine Clarity CLEAR Urine pH 7.0 Ur Specific [place] 1.020 Urine Protein 30 H Urine Glucose (UA) 100 H Urine Ketones NEGATIVE Urine Occult Blood TRACE-INTA Urine Nitrite NEGATIVE Urine Bilirubin NEGATIVE Urine Urobilinogen 0.2 (NORMAL) Ur Leukocyte Esterase NEGATIVE Urine RBC 0-5 Urine WBC 0-3 Ur Squamous Epith Cells NONE SEEN Urine Bacteria Rare Ur Microscopic Review INDICATED Urine Culture Comments NOT INDICATED - Rads (name of study) Right upper quadrant ultrasound Radiology: Prelim report reviewed, EMP read contemporaneously, See rad report (5 mm gallbladder wall polyp as before. 2. No evidence for cholelithiasis or cholecystitis. 3. Mildly prominent extrahepatic biliary system measuring up to 8 mm of indeterminate etiology, previously 5 mm. 4. Moderately fatty infiltrated liver as before. ) PD MEDICAL DECISION MAKING - ED course Complexity details: reviewed old records, reviewed results, re-evaluated patient, considered differential, d/w patient, d/w family, d/w construction consultant ED course: 52-year-old female presents to the emergency department with epigastric and right upper quadrant pain. Had a endoscopy approximately 6 weeks ago which did not show any evidence of esophagitis or gastritis. She is planned to have a cholecystectomy in 1 week. Her pain was not able to be well controlled in the emergency department, Despite Dilaudid and a GI cocktail therefore surgery was contacted, Dr. Blanco will take to the OR. This document was made in part using voice recognition software. While efforts are made to proofread this document, sound alike and grammatical errors may occur. Departure - Departure Disposition: ED Transfer to [facility] Clinical Impression: Biliary colic Abdominal pain Qualifiers: Abdominal location: right upper quadrant Qualified Code(s): R10.11 - Right upper quadrant pain Condition: Stable
[2018-06-19 07:29] LABS: BILIRUBIN,URINE NEGATIVE (NEGATIVE); GLUCOSE, URINE (UA) 100 mg/dL (NEGATIVE); KETONES,URINE (UA) NEGATIVE (NEGATIVE); LEUKOCYTE ESTERASE, URINE NEGATIVE (NEGATIVE); NITRITE,URINE NEGATIVE (NEGATIVE); OCCULT BLOOD,URINE TRACE-INTA (NEGATIVE); PROTEIN,URINE 30 mg/dL (NEGATIVE); UROBILINOGEN,URINE 0.2 (NORMAL) E.U./dL (NORMAL)
[2018-06-19 07:33] LABS: CLARITY,URINE CLEAR (CLEAR)
[2018-06-19 07:41] LABS: RBC,URINE 0-5 /HPF (0-5); SQUAMOUS EPITHELIAL CELL,UR NONE SEEN (<= Few)
[2018-06-19 07:42] LABS: BACTERIA,URINE Rare /HPF (None Seen)
--- NOTE | 2018-06-19 08:18 | Ultrasound Report ---
Reason: RUQ abd pain Procedure Date: 06/19/2018 Accession Number: [id number] / [id number] Procedure: US - Abdomen Limited CPT Code: FULL RESULT: EXAM: ABDOMEN ULTRASOUND LIMITED, RUQ EXAM DATE: 06/19/2018 07:57 AM. CLINICAL HISTORY: Right upper quadrant pain, scheduled for cholecystectomy 06/26/2018. COMPARISON: ABDOMEN LIMITED 05/07/2018 10:37 AM. TECHNIQUE: Real-time scanning was performed with static images obtained. FINDINGS: Liver: The liver parenchyma is moderately echogenic diffusely. No evidence for cirrhosis, mass or enlargement. 18.1 cm. Main portal vein flow: Hepatopetal. Gallbladder: A 5 mm posterior wall gallbladder polyp present. No visible stones, sludge or wall thickening. Negative sonographic Castellano's sign although patient is on pain medication. Biliary System: CBD measures up to 8 mm. Previously measured 5 mm. No intrahepatic or extrahepatic ductal dilatation. No obstructing stone or mass visualized. Other: None. IMPRESSION: 1. 5 mm gallbladder wall polyp as before. 2. No evidence for cholelithiasis or cholecystitis. 3. Mildly prominent extrahepatic biliary system measuring up to 8 mm of indeterminate etiology, previously 5 mm. 4. Moderately fatty infiltrated liver as before. RADIA
[2018-06-19] MEDS ORDERED: PHENobarb/HYOSCY/ATROPINE/SCOP 5 ML UDC PO STA (09:33)
[2018-06-19] MEDS ORDERED: LIDOCAINE VISCOUS 2% 15 ML UDC MM STA (09:33)
[2018-06-19] MEDS ORDERED: SUCRALFATE 1 GM/10 ML UDC PO STA (09:33)
[2018-06-19] MEDS ORDERED: MAG HYDROX/AL HYDROX/SIMETH 30 ML UDC PO STA (09:33)
--- NOTE | 2018-06-19 13:43 | ANESTHESIA ---
Pre-Anesthesia VS, & Labs - Diagnosis symptomatic cholecystitis - Procedure Laparoscopic cholecystectomy Vital Signs: Temp Pulse Resp BP Pulse Ox 36.6 C 69 16 119/66 98 06/19/18 09:15 06/19/18 11:48 06/19/18 11:48 06/19/18 11:48 06/19/18 11:48 Height 5 ft Weight (kg) 64.864 kg Body Mass Index 27.9 - NPO >8 hours - Is Patient ?: No - Lab Results Current Lab Results: Laboratory Tests 06/19/18 07:00: Sodium 137, Potassium 3.8, Chloride 100 L, Carbon Dioxide 27, Anion Gap 10.0, BUN 10, Creatinine 0.5, Estimated GFR (MDRD) 131, Glucose 146 H, Calcium 8.9, Total Bilirubin 0.5, AST 29, ALT 45, Alkaline Phosphatase 83, Total Protein 8.2, Albumin 4.5, Globulin 3.7, Albumin/Globulin Ratio 1.2, Lipase 37 06/19/18 07:00: WBC 7.5, RBC 4.73, Hgb 14.2, Hct 41.1, MCV 86.9, MCH 29.9, MCHC 34.5, RDW 12.8, Plt Count 239, MPV 8.0, Neut # (Auto) 5.2, Lymph # (Auto) 1.7, [place] # (Auto) 0.4, Eos # (Auto) 0.3, Baso # (Auto) 0.1, Absolute Nucleated RBC 0.00, Nucleated RBC % 0.0 Fish Bones: 06/19/18 07:00 06/19/18 07:00 Home Medications and Allergies Active Medications Sodium Chloride (Normal Saline 0.9%) 1,000 mls @ 150 mls/hr IV .[id number] ONE Stop: 06/19/18 13:50 Last Admin: 06/19/18 07:20 Dose: 150 mls/hr Simvastatin 20 mg PO QPM 01/11/15 Telmisartan/Hydrochlorothiazid [Micardis Hct 40-12.5 mg Tablet] 40 mg PO DAILY 02/20/17 Allergies/Adverse Reactions: Allergies Allergy/AdvReac Type Severity Reaction Status Date / Time codeine Allergy Intermediate Rash Verified 06/19/18 06:45 Anes History & Medical History - Anesthetic History Anesthesia Complications: reports: No previous complications - Medical History Cardiovascular: reports: Hypertension, High cholesterol Pulmonary: reports: None Gastrointestinal: reports: None Urinary: reports: None Musculoskeletal: reports: None Endocrine/Autoimmune: reports: None Blood Disorders: reports: None Skin: reports: None Smoking Status: Never smoker - Surgical History General: Appendectomy Eyes Ears Nose Throat (EENT): Cataracts Gynecologic: section Exam General: Alert Dental: WNL Mouth Opening: Greater than 4 Fingerbreadths Mallampati classification: II Thyromental Distance: greater than 6 cm Respiratory: Lungs clear Cardiovascular: Regular rate, Normal S1, Normal S2 Mental/Cognitive Status: Alert/Oriented X3 Plan Anesthesia Type: General Consent for Procedure(s) Verified and Reviewed: Yes Code Status: Attempt Resuscitation ASA classification: 2-Mild systemic disease Is this case an emergency?: Yes
--- NOTE | 2018-06-19 13:45 | CONSULTATION NOTE ---
Referring Provider Name of Referring Provider:: Dr. Gustabo Graves Consult Date: 06/19/18 Chief Complaint - Chief Complaint Chief Complaint: Epigastric pain History of Present Illness - Admitted From Admitted From:: Outpatient - History Obtained From Records Reviewed: Yes History obtained from: Patient, chart, Dr. Graves Exam Limitations: None - History of Present Illness HPI Comment/Other: Dr. Asif Graves asked to see this very pleasant 52-year-old female for evaluation and possible treatment of gallbladder disease. Importantly, the patient had already seen Dr. Donavan Kirkland for this very same problem and was scheduled for surgery next Tuesday. Unfortunately, and celebrating their wedding anniversary her bought [place] food and especially broccoli which the patient cannot get enough of and she states that following this the pain started at 11:00 last night and percent has persisted throughout the day. There has been no remission. This is the worst she is ever had this pain. She is somewhat nauseous but has not vomited. She denies hematemesis, melena, or hematochezia. My understanding is Dr. Kirkland's evaluation also included an upper scope. As the pain is unremitting Dr. Graves is asked if I would consider performing the patient's operation today. I explained that I would. 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 HEENT: reports: Cataracts - POLST Patient has POLST: No Meds/Allgy - Home Medications Home Medications: Ambulatory Orders Medication Instructions Recorded Confirmed Simvastatin 20 mg PO QPM 01/11/15 06/19/18 Telmisartan/Hydrochlorothiazid 40 mg PO DAILY 02/20/17 06/19/18 [Micardis Hct 40-12.5 mg Tablet] raNITIdine [Zantac] 150 mg PO BID #30 tablet 05/07/18 06/19/18 Docusate Sodium 250Mg Capsule 250 mg PO DAILY #10 capsule 06/19/18 [Colace 250Mg Capsule] Hydrocodone/Acetaminophen [[place] 1 each PO Q4H #20 tablet 06/19/18 5-325 Tablet] - Allergies Allergies/Adverse Reactions: Allergies Allergy/AdvReac Type Severity Reaction Status Date / Time codeine Allergy Intermediate Rash Verified 06/19/18 06:45 Review of Systems - Constitutional Constitutional: denies: Fatigue - Eyes Eyes: denies: Pain - Ears, Nose & Throat Ears, Nose & Throat: denies: Ear pain - Cardiovascular Cariovascular: denies: Irregular heart rate, Chest pain - Respiratory Respiratory: denies: Cough, Sputum production, Wheezing - Gastrointestinal Gastrointestinal: reports: Abdominal pain (Primarily epigastric and ever so slightly on the right upper quadrant.) - Genitourinary Genitourinary: denies: Dysuria - Musculoskeletal Musculoskeletal: denies: Muscle pain, Back pain - Integumentary Integumentary: denies: Rash - Neurological Neurological: denies: General weakness, Focal weakness Exam - Vital Signs Reviewed Vital Signs: Yes Vital Signs: Vital Signs x48h Temp Pulse Resp BP Pulse Ox 06/19/18 11:48 69 16 119/66 98 06/19/18 11:10 74 17 136/78 H 98 06/19/18 09:15 36.6 C 85 17 138/91 H 96 06/19/18 06:42 36.7 C 79 20 165/96 H 99 - Physical Exam General Appearance: positive: Mild distress Eyes Bilateral: positive: No lid inflammation, No scleral icterus, Other ENT: positive: Dry mucous membranes (Injection of left conjunctiva.) Neck: positive: Trachea midline Respiratory: positive: Chest non-tender, No respiratory distress, Breath sounds nml Cardiovascular: positive: Regular rate & rhythm, No murmur, No gallop Abdomen: positive: Nml bowel sounds, Tenderness (Epigastrium.) Extremities: positive: Non-tender, Full ROM, Nml appearance Neurologic/Psychiatric: positive: Oriented x3, Motor nml, Sensation nml, Mood/affect nml Conclusion/Plan - Diagnosis Diagnosis: Biliary colic (symptomatic cholelithiasis) - Plan Plan: Laparoscopic cholecystectomy, possible open cholecystectomy, possible intraoperative cholangiogran, possible common bile duct exploration. The indications, procedure, alternatives including no surgery, ingestion of Actigall, possible risks including infection (deep or superficial), bleeding requiring transfusion (with all of its risks), common bile duct injury requring repair and additional surgery, and were fully explained to the patient and all questions answered. I also explained the pathophysiology. I explained that following the surgery I did not want her lifting anything over 15 pounds for 6 weeks to allow for optimal healing and to decrease the likelihood that a hernia would occur. All questions were fully answered. Verbal and written consent was obtained. The patient, in preparation for surgery has been nothing by mouth, and receive 2 gm of Cephalexin with induction. I asked her to contact me with any surgical questions and her concerns and she stated that she would. I asked her to let me know if there is any way we can make her stay at [facility] more comfortable and she stated that she would let me know. The plan is to do this operation as an outpatient procedure and to discharge her home following the procedure. 45 minutes of [id number] time spent with the patient, the majority of which was spent in discussion, coordination of care, and completion of the requisite paperwork Dragon disclaimer: This document was created in part using voice recognition technology. Because of the inherent limitations of the system ([facility]'s [employer] user manual states that the licensee understands that speech recognition is a statistical process and that recognition errors are inherent in the process), occasional same sounding word substitutions and grammatical errors do occur and persist despite proofreading. Please read this document for context. - Lab Results Fish Bones: 06/19/18 07:00 06/19/18 07:00
[2018-06-19] MEDS ORDERED: ROCURONIUM 50 MG/5 ML VIAL IVP ONE (14:00)
[2018-06-19] MEDS ORDERED: MIDAZOLAM 2 MG/2 ML VIAL IVP ONE (14:00)
[2018-06-19] MEDS ORDERED: PROPOFOL 200 MG/20 ML VIAL IVP ONE (14:00)
[2018-06-19] MEDS ORDERED: GLYCOPYRROLATE 1 MG/5 ML VIAL IVP ONE (14:00)
[2018-06-19] MEDS ORDERED: DEXAMETHASONE 4 MG/ML VIAL IVP ONE (14:00)
[2018-06-19] MEDS ORDERED: ACETAMINOPHEN 1,000 MG/100 ML 100 ML IV ONE (14:00)
[2018-06-19] MEDS ORDERED: NEOSTIGMINE 1 MG/1 ML 10 ML MDV IVP ONE (14:00)
[2018-06-19] MEDS ORDERED: fentaNYL 100 MCG/2 ML VIAL IVP ONE (14:00)
[2018-06-19] MEDS ORDERED: ONDANSETRON 4 MG/2 ML VIAL IVP ONE (14:00)
[2018-06-19] MEDS ORDERED: KETOROLAC 30 MG/ML VIAL IVP ONE (14:00)
[2018-06-19] MEDS ORDERED: ceFAZolin 2 GM/50 ML 2 GM/50 ML BAG IV ONE (14:00)
[2018-06-19] MEDS ORDERED: ePHEDrine 50 MG/ML VIAL IVP ONE (14:00)
[2018-06-19] MEDS ORDERED: LIDOCAINE-MPF 1% 5 ML VIAL SUBQ ONE (14:00)
[2018-06-19] MEDS ORDERED: LACTATED RINGERS 1,000 ML IV ONE ×2 (14:44→14:45)
[2018-06-19] MEDS ORDERED: BUPIVACAINE 0.5% PF 30 ML VIAL ONE (15:01)
[2018-06-19] MEDS ORDERED: BUPIVACAINE 0.5% PF 30 ML VIAL INFIL ONE ×2 (15:07)
[2018-06-19] MEDS ORDERED: ONDANSETRON 4 MG/2 ML VIAL IVP PRN (16:21)
[2018-06-19] MEDS ORDERED: HYDROcod/ACETAM 5/325 MG TABLET PO PRN (16:21)
[2018-06-19] MEDS ORDERED: HYDROmorphone 0.5 MG/0.5 ML SYRINGE IVP PRN (16:21)
--- NOTE | 2018-06-19 16:32 | OPERATIVE REPORT ---
Operative Report - General Procedure Date: 06/19/18 Planned Procedure: Laparoscopic cholecystectomy Pre-Op Diagnosis: Symptomatic cholelithiasis Procedure Performed: Laparoscopic cholecystectomy Post Op Diagnosis: Hydrops - Procedure Note Primary Surgeon: Gilmer Blanco MD Anesthesia Provider: Nikole Joy CRNA Anesthesia Technique: General ET tube, Local (30 mL of half percent Marcaine) IV Fluids (mL): 800 Estimated Blood Loss (mL): 10 Drain/Tube Type: Other (None.) Complications: None. - Other Other Information/Narrative: OPERATIVE DESCRIPTION/REPORT: After verbal and written informed consent was obtained detailing the risks of infection, bleeding requiring transfusion with its risks, nerve injury, and , as well as the possibility of a colostomy, and after I met with the patient confirming the surgery, the patient was brought to the operative suite and placed supine on the operating table. Great care was taken to avoid pressure points to prevent pressure necrosis or nerve injury. Monitoring devices were applied along with TEDs and pneumatic compressive stockings (to prevent DVT). The patient received preoperative antibiotics for surgical prophylaxis. Nikole Joy CRNA sedated and anesthetized the patient for the entire procedure. The patient was prepped and draped in the usual sterile manner. A "time in" then confirmed that the patient was identified with 3 identifiers (name, date and medical record number), the history and physical was in the chart, the signed consent confirming the procedure was in the chart, the patient was in the correct position, the aforementioned prophylactic measures were in place or given, we had the correct personnel and equipment to complete the procedure and that anesthesia, surgery and nursing were given an opportunity to express any concerns. With the agreement of everyone in the room, we proceeded with the operation. The initial incision was at the umbilicus and dissection to the linea alba was completed using blunt dissection. The linea alba was grasped with a Umair and incised. In a similar manner the peritoneum was grasped and incised using Metzenbaum scissors. In this location, a 12 mm blunt tipped, balloon tipped port was placed and the balloon was inflated to keep the port in position. The abdominal cavity was insufflated with carbon dioxide to steady-state pressure of 15 mmHg. Three additional 5 mm ports were placed in standard location for laparoscopic cholecystectomy (subxiphoid and 2 right subcostal) under direct vision of the 30 degree laparoscope and without incident. The patient was then placed in reverse Trendelenburg position and was rotated slightly to their left. The gallbladder was distended and turgid. There was no way this could be grasped without draining it first. Upon inserting a laparoscopic needle 60 cc of clear colorless fluid was removed (hydrops). With the fluid removed, the gallbladder fundus was grasped with an atraumatic grasper. Multiple adhesions had to be taken down by blunt and sharp dissection along with electrocautery. Eventually, we identified the infundibulum, and this was then grasped and retracted inferior and laterally. Dissection was then begun in the angle of Calot. The cystic duct and (slightly medially and posteriorly) cystic artery were clearly identified. The critical view was obtained. Two clips proximally and one clip distally were used to control both the cystic duct and cystic artery. The clips were carefully placed to avoid occluding the juncture with the common bile duct. Both the cystic duct and then the cystic artery were then transected with laparoscopic deisy. The gallbladder was then removed from its fossa in a retrograde fashion using electrocautery. With the 30 degree 5 mm scope in the subxiphoid position, the gallbladder was placed in an EndoCatch bag to be extracted through the 12 mm port site. I irrigated the right upper quadrant with 2 liters of warm sterile saline, and the area was aspirated dry. I inspected the gallbladder fossa and there was no bleeding or bile leak. Clips on the cystic duct and cystic artery appeared to be secure. I briefly visually explored the abdomen. There was no other evidence of overt pathology. I injected the port sites at the peritoneal, fascial, and skin levels under direct vision with 0.5% Marcaine. All ports and the EndoCatch containing the gallbladder were removed. Following gallbladder removal, the remaining carbon dioxide was expelled from the abdomen. The fascia at the umbilicus was reapproximated using 2 [id number] 0 Vicryl sutures. The skin at each port site was approximated using a subcuticular 4-0 Monocryl. The surgical count of instruments, needles and sponges was reported as correct twice. Dermabond was applied. The patient was then awakened from anesthesia, extubated, and having tolerated the procedure well, was transported to the recovery room. No complications were encountered. A "time out" confirmed the operation performed, the fluids given, the estimated blood loss and anesthesia, surgery and nursing were given an opportunity to express any concerns. Dragon disclaimer: This document was created in part using voice recognition technology. Because of the inherent limitations of the system ([employer]'s [employer] Dictate user manual states that the licensee understands that speech recognition is a statistical process and that recognition errors are inherent in the process), occasional same sounding word substitutions and grammatical errors do occur and persist despite proofreading. Please read this document for context.
[2018-06-19 19:44] VITALS: BP 166/89
== END 2018-06-19 20:00 | disposition home or self-care (01) ==
LOC: ED 06:37 → SDS 13:23 → ICU 17:44 → SDS 20:00
PROVIDERS: ATTEND Surgery
PROC: 0FT44ZZ Resection of Gallbladder, Percutaneous Endoscopic Approach (ICD-10-PCS; principal; 2018-06-19 16:15)
DX: I10 Essential (primary) hypertension (principal); E78.00 Pure hypercholesterolemia, unspecified; K81.1 Chronic cholecystitis
CPT/HCPCS: 36415; 47562; 76705; 80053; 81001; 83690; 85025; 99284; A9270; J1170; J7120; 81003; 87086; 96374; 96375

== ENCOUNTER 2019-01-06 21:55 | Emergency (ER) | payer OTHER ==
[2019-01-06 22:01] VITALS: BP 172/86
[2019-01-06] MEDS ORDERED: oxyCODONE/ACET 5/325 Prepack 4 PO STA (22:07)
[2019-01-06] MEDS ORDERED: PENICILLIN VK 250 MG TABLET PO STA (22:07)
--- NOTE | 2019-01-06 22:10 | ED Physician Documentation ---
History of Present Illness - Stated complaint Stated Complaint: MOUTH PX/SWOLLEN L SIDE FACE - Chief complaint Chief Complaint: Heent - History obtained from History obtained from: Patient - History of Present Illness Timing: Yesterday (She has had pain from the right side of the jaw since yesterday with mild facial swelling. No fevers.) Review of Systems Constitutional: reports: Reviewed and negative Throat: reports: Dental pain / toothache. 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 HEENT: Cataracts - Present Medications Home Medications: Ambulatory Orders Medication Instructions Recorded Confirmed Simvastatin 20 mg PO QPM 01/11/15 06/19/18 Telmisartan/Hydrochlorothiazid 40 mg PO DAILY 02/20/17 06/19/18 [Micardis Hct 40-12.5 mg Tablet] raNITIdine [Zantac] 150 mg PO BID #30 tablet 05/07/18 06/19/18 Docusate Sodium 250Mg Capsule 250 mg PO DAILY #10 capsule 06/19/18 [Colace 250Mg Capsule] Hydrocodone/Acetaminophen [[place] 1 each PO Q4H #20 tablet 06/19/18 5-325 Tablet] Oxycodone HCl/Acetaminophen 1 - 2 each PO Q6H PRN #14 tablet 01/06/19 [Percocet 5-325 mg Tablet] Penicillin V Potassium 500 mg PO Q6HR #40 tablet 01/06/19 - Allergies Allergies/Adverse Reactions: Allergies Allergy/AdvReac Type Severity Reaction Status Date / Time codeine Allergy Intermediate Rash Verified 01/06/19 22:01 - Social History Does the pt smoke?: No Smoking Status: Never smoker Does the pt drink ETOH?: No Does the pt have substance abuse?: No - Immunizations Immunizations are current?: Yes - POLST Patient has POLST: No PD ED PE NORMAL - Vitals Vital signs reviewed: Yes - General General: Alert and oriented X 3, No acute distress - HEENT HEENT: Other (She is actually mostly edentulous on the right mandible, missing all of the molars and most of the premolars. Just posterior to the last premolar that is in place there is an abscess on the gumline, not ripe for incision and drainage, the swelling is pretty mild but it is tender. There is no trismus or sublingual edema.) - Neck Neck: Supple, no meningeal sign, No bony TTP - Neuro Neuro: Alert and oriented X 3, Normal speech Results - Vitals Vitals: Vital Signs - 24 hr 01/06/19 21:58 Temperature 36.6 C Heart Rate 92 Respiratory 16 Rate Blood Pressure 172/86 H O2 Saturation 97 Oxygen O2 Source Room air PD MEDICAL DECISION MAKING - ED course ED course: 53-year-old woman with a dental infection, mild facial cellulitis. No evidence of Neymar's. Started on penicillin and Percocet pending dental follow-up. Departure - Departure Disposition: 01 Home, Self Care Clinical Impression: Infection of mandible Condition: Good Record reviewed to determine appropriate education?: Yes Instructions: ED Dental Abscess Facial Cellulitis Prescriptions: Penicillin V Potassium 500 mg PO Q6HR #40 tablet Oxycodone HCl/Acetaminophen [Percocet 5-325 mg Tablet] 1 - 2 each PO Q6H PRN #14 tablet PRN Reason: pain Comments: Follow-up with your dentist on Tuesday, return for new or worsening symptoms. Do not drink or drive while taking prescription pain medications. You can also take ibuprofen as needed for the pain.
== END 2019-01-06 22:24 | disposition home or self-care (01) ==
LOC: ED 21:55
DX: K04.7 Periapical abscess without sinus (principal); L03.211 Cellulitis of face; K05.319 Chronic periodontitis, localized, unspecified severity; I10 Essential (primary) hypertension
CPT/HCPCS: 99282; 99283; A9270

== ENCOUNTER 2021-10-24 19:00 | Emergency (ER) | payer OTHER ==
--- NOTE | 2021-10-24 19:23 | ED Physician Documentation ---
PD HPI ABD PAIN - Stated complaint Stated Complaint: BACK PX - Chief complaint Chief Complaint: Back Pain - History obtained from History obtained from: Patient, Family - Additional information Additional information: 56-year-old woman status post remote appendectomy and cholecystectomy and more recent right-sided lumpectomy presents with 2 days of right flank and abdominal pain. It may have started after some light vacuuming but there was no other specific injury. It is quite severe at this time and much more severe than her post surgical lumpectomy pain. She denies nausea, vomiting, urinary complaints, fever, vaginal discharge. She presents with her who is driving. 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 HEENT: Cataracts - Present Medications Home Medications: Ambulatory Orders Medication Instructions Recorded Confirmed Simvastatin 20 mg PO QPM 01/11/15 06/19/18 Telmisartan/Hydrochlorothiazid 40 mg PO DAILY 02/20/17 06/19/18 [Micardis Hct 40-12.5 mg Tablet] raNITIdine [Zantac] 150 mg PO BID #30 tablet 05/07/18 06/19/18 Docusate Sodium 250Mg Capsule 250 mg PO DAILY #10 capsule 06/19/18 [Colace 250Mg Capsule] Hydrocodone/Acetaminophen [[place] 1 each PO Q4H #20 tablet 06/19/18 5-325 Tablet] Oxycodone HCl/Acetaminophen 1 - 2 each PO Q6H PRN #14 tablet 01/06/19 [Percocet 5-325 mg Tablet] Penicillin V Potassium 500 mg PO Q6HR #40 tablet 01/06/19 - Allergies Allergies/Adverse Reactions: Allergies Allergy/AdvReac Type Severity Reaction Status Date / Time codeine Allergy Intermediate Rash Verified 01/06/19 22:01 - Social History Does the pt smoke?: No Smoking Status: Never smoker Does the pt drink ETOH?: No Does the pt have substance abuse?: No - Immunizations Immunizations are current?: Yes - POLST Patient has POLST: No PD ED PE NORMAL - Vitals Vital signs reviewed: Yes (Modestly tachycardic) - General General: Alert and oriented X 3, Other (She appears uncomfortable due to pain.) - HEENT HEENT: PERRL, EOMI - Neck Neck: Supple, no meningeal sign, No bony TTP - Cardiac Cardiac: RRR, No murmur - Respiratory Respiratory: No respiratory distress, Clear bilaterally - Abdomen Abdomen: Soft, Other (She is tender to the right flank but no midline spinal tenderness. She is also tender to the right side of the abdomen upper equal to lower. No surgical signs.) - Back Back: No CVA TTP, No spinal TTP - Derm Derm: Normal color, Warm and dry - Extremities Extremities: No edema, No calf tenderness / cord - Neuro Neuro: Alert and oriented X 3, Normal speech Results - Vitals Vitals: Vital Signs - 24 hr 10/24/21 10/24/21 10/24/21 19:07 20:11 21:10 Temperature 36.3 C L 36.5 C Heart Rate 103 H 80 88 Respiratory 16 16 16 Rate Blood Pressure 145/75 H 122/73 123/76 O2 Saturation 97 99 99 Oxygen O2 Source Room air - Labs Labs: Laboratory Tests 10/24/21 10/24/21 10/24/21 19:26 19:26 19:54 WBC 6.7 RBC 4.55 Hgb 13.9 Hct 40.3 MCV 88.6 MCH 30.5 MCHC 34.5 RDW 12.5 Plt Count 260 MPV 9.9 Neut # (Auto) 3.4 Lymph # (Auto) 2.4 Kimble # (Auto) 0.4 Eos # (Auto) 0.5 Baso # (Auto) 0.0 Absolute Nucleated RBC 0.00 Nucleated RBC % 0.0 Sodium 134 L Potassium 3.5 Chloride 99 L Carbon Dioxide 28 Anion Gap 7.0 BUN 12 Creatinine 0.5 Estimated GFR (MDRD) 129 Glucose 117 H Calcium 9.2 Total Bilirubin 1.2 H AST 33 ALT 39 Alkaline Phosphatase 77 Total Protein 8.2 Albumin 4.6 Globulin 3.6 Albumin/Globulin Ratio 1.3 Lipase 34 Urine Color YELLOW Urine Clarity CLEAR Urine pH 7.0 Ur Specific [place] 1.015 Urine Protein NEGATIVE Urine Glucose (UA) NEGATIVE Urine Ketones NEGATIVE Urine Occult Blood NEGATIVE Urine Nitrite NEGATIVE Urine Bilirubin NEGATIVE Urine Urobilinogen 0.2 (NORMAL) Ur Leukocyte Esterase NEGATIVE Ur Microscopic Review NOT INDICATED Urine Culture Comments NOT INDICATED PD MEDICAL DECISION MAKING - ED course ED course: 56-year-old woman presents with right-sided flank pain but also some abdominal pain, she was medicated here with 1 mg of Dilaudid and some Zofran. On reexamination at 8:47 PM she was nontender and her pain was much better. She appeared well. The right breast lumpectomy site was examined with Say alves at the bedside. No signs of infection. No tenderness. CT of the abdomen pelvis was negative and labs and urinalysis also unremarkable. She passed a p.o. challenge and remained comfortable with minimal pain after the first dose of pain medicine. Given the lack of specific diagnosis, recommended reexamination in the morning if not better or anytime if worsening or if she develops worrisome symptoms. Departure - Departure Disposition: 01 Home, Self Care Clinical Impression: Back pain Qualifiers: Back pain location: low back pain Chronicity: acute Back pain laterality: right Sciatica presence: without sciatica Qualified Code(s): M54.50 - Low back pain, unspecified Condition: Good Record reviewed to determine appropriate education?: Yes Instructions: ED Abdominal Pain Female Non-Specific Abdominal Pain Comments: The cause of your back and abdominal pain today was not clear. Thankfully your vital signs, labs, urinalysis, and CAT scan are reassuringly normal. Please return if you have pain for more than another 12 to 24 hours, or if pain worsens or is associated with other new or worrisome symptoms such as fever, vomiting. Follow-up with your primary care physician for reevaluation as well, next available appointment. Discharge Date/Time: 10/24/21 21:20
[2021-10-24 19:31] LABS: BASOPHILS % (AUTO) 0.6 %; EOSINOPHILS # (AUTO) 0.5 10^3/uL (0.0-0.7); HCT - HEMATOCRIT 40.3 % (37.0-47.0); HGB - HEMOGLOBIN 13.9 g/dL (12.0-16.0); LYMPHOCYTES # (AUTO) 2.4 10^3/uL (1.5-3.5); LYMPHOCYTES % (AUTO) 36.2 %; MEAN CORPUSCULAR HEMOGLOBIN 30.5 pg (27.0-31.0); MEAN CORPUSCULAR HGB CONC 34.5 g/dL (32.0-36.0); MEAN CORPUSCULAR VOLUME 88.6 fL (81.0-99.0); MEAN PLATELET VOLUME 9.9 fL (7.9-10.8); MONOCYTES # (AUTO) 0.4 10^3/uL (0.0-1.0); MONOCYTES % (AUTO) 5.5 %; NEUTROPHILS # (AUTO) 3.4 10^3/uL (1.5-6.6); NEUTROPHILS % (AUTO) 50.6 %; PLT - PLATELET COUNT 260 10^3/uL (130-450); RED BLOOD COUNT 4.55 10^6/uL (4.20-5.40); RED CELL DISTRIBUTION WIDTH 12.5 % (12.0-15.0); WHITE BLOOD COUNT 6.7 x10^3/uL (4.8-10.8)
[2021-10-24] MEDS: ONDANSETRON 4 MG/2 ML VIAL IVP STA (19:35)
[2021-10-24] MEDS: HYDROmorphone 1 MG/ML CARPUJECT IVP STA (19:35)
[2021-10-24 19:42] LABS: ALBUMIN 4.6 g/dL (3.2-5.5); ALBUMIN/GLOBULIN RATIO 1.3 (1.0-2.2); BILIRUBIN,TOTAL 1.2 mg/dL (0.2-1.0); CALCIUM 9.2 mg/dL (8.5-10.3); CREATININE 0.5 mg/dL (0.4-1.0); POTASSIUM 3.5 mmol/L (3.5-5.0); TOTAL PROTEIN 8.2 g/dL (6.7-8.2)
[2021-10-24 20:04] LABS: BILIRUBIN,URINE NEGATIVE (NEGATIVE); GLUCOSE, URINE (UA) NEGATIVE (NEGATIVE); KETONES,URINE (UA) NEGATIVE (NEGATIVE); LEUKOCYTE ESTERASE, URINE NEGATIVE (NEGATIVE); NITRITE,URINE NEGATIVE (NEGATIVE); OCCULT BLOOD,URINE NEGATIVE (NEGATIVE); PROTEIN,URINE NEGATIVE (NEGATIVE); UROBILINOGEN,URINE 0.2 (NORMAL) E.U./dL (NORMAL)
[2021-10-24 20:08] LABS: CLARITY,URINE CLEAR (CLEAR)
--- NOTE | 2021-10-24 20:35 | CT Report ---
PROCEDURE: Abdomen/Pelvis W INDICATIONS: R flank pain CONTRAST: IV CONTRAST: Optiray 320 ml: 100 PO CONTRAST: *NO PO CONTRAST TECHNIQUE: After the administration of intravenous contrast, 5 mm thick sections acquired from the diaphragms to the symphysis. 5 mm thick coronal and sagittal reformats were acquired. For radiation dose reducti on, the following was used: automated exposure control, adjustment of mA and/or kV according to sung ent size. COMPARISON: None. FINDINGS: Image quality: Excellent. ABDOMEN: Lung bases: Lung bases are clear. Heart size is normal. Right breast clips. Solid organs: Liver and spleen are normal in size and enhancement. No focal lesion. Gallbladder is a bsent. Biliary system is non dilated. Pancreas enhances normally. No adrenal nodules. Kidneys dem onstrate normal size and enhancement, without hydronephrosis. Right cortical hypodensity which is too small to further characterize. Peritoneum and bowel: Bowel loops demonstrate normal wall thickness and caliber. Probable clip in th e right colon. The appendix is not identified. No free fluid or air. Nodes and vessels: No retroperitoneal or mesenteric adenopathy by size criteria. Aorta and inferior vena cava are normal in size. Miscellaneous: No ventral hernias. PELVIS: Genitourinary: Bladder is mostly decompressed. Uterus is located anteriorly abutting the anterior lo wer abdominal wall. Miscellaneous: No inguinal hernias or adenopathy. Bones: No suspicious bony lesions. No vertebral body compression fractures. IMPRESSION: No acute abnormality identified. No free fluid. Hydronephrosis. No bowel obstruction. Reviewed by: Eric Srinivasan MD on 10/24/2021 8:34 PM PDT Approved by: Eric Srinivasan MD on 10/24/2021 8:34 PM PDT Station ID: [id number]
[2021-10-24] MEDS: HYDROcod/ACET 5/325 Prepack 4 PO STA (21:09)
[2021-10-24 21:10] VITALS: BP 123/76
== END 2021-10-24 21:20 | disposition home or self-care (01) ==
LOC: ED 19:00
DX: M54.50 Low back pain, unspecified (principal); I10 Essential (primary) hypertension
CPT/HCPCS: 36415; 74177; 80053; 81003; 83690; 85025; 96374; 96375; 99282; 99284; J1170; Q9967; 81001; 87086

== ENCOUNTER 2022-01-02 23:16 | Emergency (ER) | payer OTHER ==
[2022-01-02 23:33] VITALS: BP 110/72
[2022-01-03] MEDS ORDERED: diphenhydrAMINE 25 MG CAPSULE PO STA (00:02)
[2022-01-03] MEDS ORDERED: TRIAMCINOLONE 0.1% CREAM 15 GM TUBE TOP STA (00:02)
--- NOTE | 2022-01-03 00:07 | ED Physician Documentation ---
PD HPI SKIN - Stated complaint Stated Complaint: RASH - Chief complaint Chief Complaint: Wound - History obtained from History obtained from: Patient - Additional information Additional information: Patient is a 56-year-old female presenting for evaluation of a pruritic rash to her and abdomen that is been present for 1 week. She recently completed radiation treatments for breast cancer 2 weeks ago. She has been having pruritus throughout her radiation treatment and was instructed by her radiation oncologist to olive picker a cream which she has been using. However the rash has been present for the last week and becoming increasingly pruritic prompting her to come to the ER [facility]. She had not reached back out to her radiation oncologist or her oncologist through this week when the rash showed up. She denies fever, chest pain, difficulty breathing, abdominal pain.She denies any new exposures. No one else in the household has a similar rash. 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 HEENT: Cataracts - Present Medications Home Medications: Ambulatory Orders Medication Instructions Recorded Confirmed Simvastatin 20 mg PO QPM 01/11/15 01/02/22 Telmisartan/Hydrochlorothiazid 80 mg PO DAILY 02/20/17 01/02/22 [Micardis Hct 40-12.5 mg Tablet] Docusate Sodium 250Mg Capsule 250 mg PO DAILY #10 capsule 06/19/18 01/02/22 [Colace 250Mg Capsule] Omeprazole Magnesium 20 mg PO DAILY 01/02/22 01/02/22 amLODIPine [Norvasc] 5 mg PO DAILY 01/02/22 01/02/22 Triamcinolone 0.1% Cream [Kenalog 1 applic TOP BID #15 gm 01/03/22 0.1% Cream] - Allergies Allergies/Adverse Reactions: Allergies Allergy/AdvReac Type Severity Reaction Status Date / Time codeine Allergy Intermediate Rash Verified 01/02/22 23:33 - Social History Does the pt smoke?: No Smoking Status: Never smoker Does the pt drink ETOH?: No Does the pt have substance abuse?: No - Immunizations Immunizations are current?: Yes - POLST Patient has POLST: No PD ED PE NORMAL - General General: Alert and oriented X 3, No acute distress, Well developed/nourished - HEENT HEENT: Atraumatic - Neck Neck: Supple, no meningeal sign - Cardiac Cardiac: RRR - Respiratory Respiratory: No respiratory distress, Clear bilaterally - Derm Derm: Warm and dry, Other (Fine maculopapular rash to chest and abdomen) - Neuro Neuro: Normal speech Results - Vitals Vitals: Vital Signs - 24 hr 01/02/22 23:29 Temperature 36.2 C L Heart Rate 92 Respiratory 18 Rate Blood Pressure 110/72 O2 Saturation 98 Oxygen O2 Source Nasal cannula PD MEDICAL DECISION MAKING - ED course ED course: Patient with rash to chest and abdomen that is been present for 1 week.She has recently completed radiation treatments.Does not have symptoms to suggest viral etiology to rash and does not appear to be cellulitic in nature.Patient has an oncology appointment on Tuesday.We will start trial of topical Steroids and Benadryl for itching. Patient counseled on concerning symptoms to return for. Departure - Departure Disposition: 01 Home, Self Care Clinical Impression: Rash and nonspecific skin eruption Condition: Stable Instructions: ED Dermatitis Non Specific Rash Prescriptions: Triamcinolone 0.1% Cream [Kenalog 0.1% Cream] 1 applic TOP BID #15 gm Comments: Your rash could be a side Effect from your radiation treatment. I am going to start you on a topical steroid and have sent this prescription to [facility] in [place]. I would also recommend using Benadryl every 6 hours as needed for itching as you do not want to introduce an infection to the skin from itching too much. Please reach out to your oncologist and radiation oncologist on Mo nd for close follow-up and further recommendations. If you have any worsening symptoms you can always return to the ER. Discharge Date/Time: 01/03/22 00:13
== END 2022-01-03 00:13 | disposition home or self-care (01) ==
LOC: ED 23:16
DX: R21 Rash and other nonspecific skin eruption (principal); Z92.3 Personal history of irradiation; C50.919 Malignant neoplasm of unspecified site of unspecified female breast; I10 Essential (primary) hypertension
CPT/HCPCS: 99282; 99284; A9270